=== PATIENT | male | born 1995 | race Caucasian/White ===

== ENCOUNTER 2024-08-27 12:12 | Inpatient (IN) | payer OTHER, MEDICAID, MEDICARE ==
[~2024-08-27] VITALS: Ht 175.3 cm; Wt 76.1 kg
[2024-08-27 12:52] LABS: HEMATOCRIT 46.6 % (42.0-52.0); HEMOGLOBIN 15.6 g/dl (13.5-17.5); MEAN CORPUSCULAR HEMOGLOBIN 28.8 pg (27.0-33.0); MEAN CORPUSCULAR HGB CONC 33.5 g/dl (32.0-36.5); MEAN CORPUSCULAR VOLUME 86.1 fl (80.0-96.0); PLATELET COUNT, AUTOMATED 291 10^3/uL (150-450); RED BLOOD COUNT 5.41 10^6/uL (4.30-6.10); WHITE BLOOD COUNT 13.4 10^3/uL (4.0-10.0)
[2024-08-27 12:58] LABS: KETONE, URINE AUTO RFX NEGATIVE (NEGATIVE); LEUKOCYTE ESTERASE UR AUTO RFX NEGATIVE (NEGATIVE); MUCUS, URINE RFX SMALL (NEGATIVE); NITRITE, URINE AUTO RFX NEGATIVE (NEGATIVE); RBC, URINE AUTO RFX 4 /HPF (0-3); SQUAM EPITHELIAL CELL UR AURFX 2 /HPF (0-6); WBC, URINE AUTO RFX 4 /HPF (0-3)
[2024-08-27] MEDS: cefTRIAXone SOD 2 GM in DEXTROSE 5% (D5W) ADV/MINI-BAG 50 ML IV ONE (13:10)
[2024-08-27 13:11] LABS: ETHYL ALCOHOL (ETHANOL) 0.004 % (0.000-0.010)
[2024-08-27 13:12] LABS: SALICYLATE LEVEL < 3.0 MG/DL (<30)
[2024-08-27 13:13] LABS: ALBUMIN 4.2 G/DL (3.2-5.2); ALKALINE PHOSPHATASE 137 U/L (40-129); ALT/SGPT 42 U/L (7.0-40); AST/SGOT 28 U/L (<34); BILIRUBIN,DIRECT < 0.1 MG/DL (<0.4); BILIRUBIN,TOTAL 0.3 MG/DL (0.3-1.2); BLOOD UREA NITROGEN 15 MG/DL (9-23); CALCIUM LEVEL 9.8 MG/DL (8.5-10.1); CARBON DIOXIDE LEVEL 25 MMOL/L (20-31); CHLORIDE LEVEL 107 MMOL/L (98-107); CREATININE FOR GFR 1.19 MG/DL (0.70-1.30); GLOMERULAR FILTRATION RATE > 60.0 (>60); GLUCOSE, FASTING 137 MG/DL (60-100); POTASSIUM SERUM 3.9 MMOL/L (3.5-5.1); SODIUM LEVEL 142 MMOL/L (136-145); TOTAL PROTEIN 7.9 G/DL (5.7-8.2)
[2024-08-27 13:15] LABS: THYROID STIMULATING HORMONE 5.131 uIU/ML (0.55-4.78)
[2024-08-27 13:22] LABS: AMPHETAMINES LEVEL URINE NEGATIVE (NEGATIVE); BARBITURATES URINE NEGATIVE (NEGATIVE); CANNABINOIDS URINE NEGATIVE (NEGATIVE); COCAINE METABOLITE URINE NEGATIVE (NEGATIVE); METHADONE URINE NEGATIVE (NEGATIVE); OPIATES URINE NEGATIVE (NEGATIVE); PHENCYCLIDINE URINE NEGATIVE (NEGATIVE)
[2024-08-27 13:27] LABS: BENZODIAZEPINES URINE POSITIVE (NEGATIVE)
[2024-08-27] MEDS: NS 0.9% IV ONE (13:35)
[2024-08-27] MEDS: [UNRECOGNIZED DRUG - OTHER] IV ONE (13:35)
[2024-08-27] MEDS: NS 500 ML IV ONE (13:46)
[2024-08-27] MEDS ORDERED: ZOLO100T PO (16:17)
[2024-08-27] MEDS ORDERED: CLON1TAB8 PO ×2 (16:17)
[2024-08-27] MEDS ORDERED: HOME MED LIST COMPLETE! XX SCH (16:20)
[2024-08-27] MEDS: HALOPERIDOL LACTATE 5MG/ML VIAL IV PRN (16:52)
[2024-08-27 17:32] LABS: CK-MB VALUE MASS < 1.0 NG/ML (<3.6)
[2024-08-27 17:42] LABS: CPK CREATINE PHOSPHOKINASE 392 U/L (46-171); MB/CK RELATIVE INDEX 0.25 (< OR =4)
[2024-08-27 17:44] LABS: PROCALCITONIN <0.04 ng/ml
[2024-08-27] MEDS: NS (Normal Saline) 0.9% 1,000 ML IV SCH (17:45)
[2024-08-27] MEDS: LORazepam 2 MG/ML 1ML VIAL IV PRN (22:04)
[2024-08-28] MEDS: diphenhydrAMINE 50MG/ML VIAL IV ONE (08:22)
[2024-08-28] MEDS: LORazepam 2 MG/ML 1ML VIAL IV ONE (08:23)
[2024-08-28] MEDS: HALOPERIDOL LACTATE 5MG/ML VIAL IV ONE (08:23)
[2024-08-28] MEDS: SERTRALINE HCL 50 MG TAB PO SCH (09:00)
[2024-08-28] MEDS: ENOXAPARIN 40MG/0.4ML SYRINGE (J1650 PER 10MG) SC SCH (09:00)
[2024-08-28 09:13] LABS: HEMATOCRIT 39.1 % (42.0-52.0); MEAN CORPUSCULAR HGB CONC 33.8 g/dl (32.0-36.5)
[2024-08-28 09:20] LABS: MEAN CORPUSCULAR HEMOGLOBIN 28.9 pg (27.0-33.0); MEAN CORPUSCULAR VOLUME 85.7 fl (80.0-96.0); PLATELET COUNT, AUTOMATED 225 10^3/uL (150-450); RED BLOOD COUNT 4.56 10^6/uL (4.30-6.10); WHITE BLOOD COUNT 8.5 10^3/uL (4.0-10.0)
[2024-08-28 09:26] LABS: INR 1.11; PROTHROMBIN TIME 14.6 SECONDS (12.5-14.5)
[2024-08-28 09:28] LABS: HEMOGLOBIN 13.2 g/dl (13.5-17.5)
[2024-08-28 09:41] LABS: CK-MB VALUE MASS 13.9 NG/ML (<3.6)
[2024-08-28 09:42] LABS: ALBUMIN 3.4 G/DL (3.2-5.2); ALKALINE PHOSPHATASE 111 U/L (40-129); ALT/SGPT 41 U/L (7.0-40); AST/SGOT 73 U/L (<34); BILIRUBIN,TOTAL 0.5 MG/DL (0.3-1.2); BLOOD UREA NITROGEN 9 MG/DL (9-23); CALCIUM LEVEL 8.6 MG/DL (8.5-10.1); CARBON DIOXIDE LEVEL 24 MMOL/L (20-31); CHLORIDE LEVEL 110 MMOL/L (98-107); CREATININE FOR GFR 0.85 MG/DL (0.70-1.30); GLOMERULAR FILTRATION RATE > 60.0 (>60); GLUCOSE, FASTING 120 MG/DL (60-100); POTASSIUM SERUM 3.6 MMOL/L (3.5-5.1); SODIUM LEVEL 142 MMOL/L (136-145); TOTAL PROTEIN 6.7 G/DL (5.7-8.2)
[2024-08-28 09:54] LABS: MB/CK RELATIVE INDEX 0.4 (< OR =4)
[2024-08-28] MEDS: HALOPERIDOL LACTATE 5MG/ML VIAL IV SCH (12:00)
[2024-08-28] MEDS: cefTRIAXone SOD 1 GM in DEXTROSE 5% (D5W) ADV/MINI-BAG 50 ML IV SCH (13:10)
[2024-08-28 15:23] VITALS: BP 130/74; TEMP 97.6; O2SAT 99
[2024-08-28] MEDS: NS (Normal Saline) 0.9% 1,000 ML IV SCH (16:06)
[2024-08-28 19:43] VITALS: BP 112/61; TEMP 97.2; O2SAT 100
[2024-08-28] MEDS: clonazePAM 1 MG TAB PO SCH (21:00)
[2024-08-29] VITALS (7 sets, daily range): BP systolic 122–133; BP diastolic 76–81; TEMP 97.3–99.5; O2SAT 95–99
[2024-08-29 06:41] LABS: HEMATOCRIT 38.6 % (42.0-52.0); HEMOGLOBIN 13.1 g/dl (13.5-17.5); MEAN CORPUSCULAR HGB CONC 33.9 g/dl (32.0-36.5); MEAN CORPUSCULAR VOLUME 85.6 fl (80.0-96.0); PLATELET COUNT, AUTOMATED 224 10^3/uL (150-450); RED BLOOD COUNT 4.51 10^6/uL (4.30-6.10); WHITE BLOOD COUNT 8.9 10^3/uL (4.0-10.0)
[2024-08-29 07:48] LABS: ALBUMIN 3.1 G/DL (3.2-5.2); ALKALINE PHOSPHATASE 104 U/L (40-129); ALT/SGPT 47 U/L (7.0-40); AST/SGOT 110 U/L (<34); BILIRUBIN,TOTAL 0.7 MG/DL (0.3-1.2); BLOOD UREA NITROGEN 5 MG/DL (9-23); CALCIUM LEVEL 8.5 MG/DL (8.5-10.1); CARBON DIOXIDE LEVEL 26 MMOL/L (20-31); CHLORIDE LEVEL 109 MMOL/L (98-107); CPK CREATINE PHOSPHOKINASE 4749 U/L (46-171); CREATININE FOR GFR 0.92 MG/DL (0.70-1.30); GLOMERULAR FILTRATION RATE > 60.0 (>60); GLUCOSE, FASTING 93 MG/DL (60-100); POTASSIUM SERUM 4.1 MMOL/L (3.5-5.1); SODIUM LEVEL 142 MMOL/L (136-145); TOTAL PROTEIN 6.1 G/DL (5.7-8.2)
[2024-08-30 04:00] VITALS: BP 123/83; TEMP 97.9; O2SAT 99
[2024-08-30 06:38] LABS: HEMOGLOBIN 13.1 g/dl (13.5-17.5); MEAN CORPUSCULAR HEMOGLOBIN 28.6 pg (27.0-33.0); MEAN CORPUSCULAR HGB CONC 33.6 g/dl (32.0-36.5); MEAN CORPUSCULAR VOLUME 85.2 fl (80.0-96.0); PLATELET COUNT, AUTOMATED 214 10^3/uL (150-450); RED BLOOD COUNT 4.58 10^6/uL (4.30-6.10); WHITE BLOOD COUNT 6.3 10^3/uL (4.0-10.0)
[2024-08-30 07:04] LABS: ALBUMIN 2.8 G/DL (3.2-5.2); ALKALINE PHOSPHATASE 105 U/L (40-129); ALT/SGPT 42 U/L (7.0-40); AST/SGOT 78 U/L (<34); BILIRUBIN,TOTAL 0.5 MG/DL (0.3-1.2); BLOOD UREA NITROGEN 7 MG/DL (9-23); CALCIUM LEVEL 8.6 MG/DL (8.5-10.1); CARBON DIOXIDE LEVEL 27 MMOL/L (20-31); CHLORIDE LEVEL 110 MMOL/L (98-107); CREATININE FOR GFR 0.83 MG/DL (0.70-1.30); GLOMERULAR FILTRATION RATE > 60.0 (>60); GLUCOSE, FASTING 98 MG/DL (60-100); POTASSIUM SERUM 3.7 MMOL/L (3.5-5.1); SODIUM LEVEL 143 MMOL/L (136-145); TOTAL PROTEIN 6.2 G/DL (5.7-8.2)
[2024-08-30 07:24] LABS: CPK CREATINE PHOSPHOKINASE 2506 U/L (46-171)
[2024-08-30 12:00] VITALS: BP 122/84; TEMP 97.6; O2SAT 98
[2024-08-30] MEDS ORDERED: HALOPERIDOL LACTATE 5MG/ML VIAL IV SCH (21:00)
[2024-08-31 04:00] VITALS: BP 139/87; TEMP 96.6; O2SAT 99
[2024-08-31 06:49] LABS: HEMOGLOBIN 13.7 g/dl (13.5-17.5); MEAN CORPUSCULAR HGB CONC 34.3 g/dl (32.0-36.5); MEAN CORPUSCULAR VOLUME 84.7 fl (80.0-96.0); PLATELET COUNT, AUTOMATED 229 10^3/uL (150-450); RED BLOOD COUNT 4.72 10^6/uL (4.30-6.10); WHITE BLOOD COUNT 7.5 10^3/uL (4.0-10.0)
[2024-08-31] MEDS: METOPROLOL TART 12.5 MG PER 1/2 TAB PO SCH (07:07)
[2024-08-31 07:18] LABS: ALKALINE PHOSPHATASE 106 U/L (40-129); ALT/SGPT 42 U/L (7.0-40); AST/SGOT 60 U/L (<34); BILIRUBIN,TOTAL 0.5 MG/DL (0.3-1.2); BLOOD UREA NITROGEN 5 MG/DL (9-23); CALCIUM LEVEL 8.7 MG/DL (8.5-10.1); CARBON DIOXIDE LEVEL 26 MMOL/L (20-31); CHLORIDE LEVEL 108 MMOL/L (98-107); CREATININE FOR GFR 0.79 MG/DL (0.70-1.30); GLOMERULAR FILTRATION RATE > 60.0 (>60); GLUCOSE, FASTING 97 MG/DL (60-100); POTASSIUM SERUM 3.7 MMOL/L (3.5-5.1); SODIUM LEVEL 142 MMOL/L (136-145); TOTAL PROTEIN 6.2 G/DL (5.7-8.2)
[2024-08-31 07:33] LABS: CPK CREATINE PHOSPHOKINASE 1408 U/L (46-171)
[2024-08-31 12:00] VITALS: BP 126/84; TEMP 97.5; O2SAT 98
[2024-08-31] MEDS ORDERED: HALOPERIDOL LACTATE 5MG/ML VIAL IM PRN (16:15)
[2024-08-31] MEDS ORDERED: LORazepam 1 MG TAB PO PRN (16:15)
[2024-08-31 20:24] VITALS: BP 137/87; TEMP 97.9; O2SAT 94
[2024-09-01 03:48] VITALS: BP 131/91; TEMP 97.5; O2SAT 99
[2024-09-01 06:30] LABS: HEMATOCRIT 41.9 % (42.0-52.0); HEMOGLOBIN 14.1 g/dl (13.5-17.5); MEAN CORPUSCULAR HEMOGLOBIN 28.7 pg (27.0-33.0); MEAN CORPUSCULAR HGB CONC 33.7 g/dl (32.0-36.5); MEAN CORPUSCULAR VOLUME 85.2 fl (80.0-96.0); PLATELET COUNT, AUTOMATED 241 10^3/uL (150-450); RED BLOOD COUNT 4.92 10^6/uL (4.30-6.10); WHITE BLOOD COUNT 6.8 10^3/uL (4.0-10.0)
[2024-09-01 06:59] LABS: ALKALINE PHOSPHATASE 108 U/L (40-129); ALT/SGPT 40 U/L (7.0-40); AST/SGOT 48 U/L (<34); BILIRUBIN,TOTAL 0.4 MG/DL (0.3-1.2); BLOOD UREA NITROGEN 10 MG/DL (9-23); CALCIUM LEVEL 9.2 MG/DL (8.5-10.1); CARBON DIOXIDE LEVEL 28 MMOL/L (20-31); CHLORIDE LEVEL 105 MMOL/L (98-107); CREATININE FOR GFR 0.89 MG/DL (0.70-1.30); GLOMERULAR FILTRATION RATE > 60.0 (>60); GLUCOSE, FASTING 99 MG/DL (60-100); SODIUM LEVEL 143 MMOL/L (136-145); TOTAL PROTEIN 6.5 G/DL (5.7-8.2)
[2024-09-01 09:26] VITALS: BP 124/83
[2024-09-01 12:00] VITALS: BP 124/83; TEMP 97.2; O2SAT 97
[2024-09-01 20:00] VITALS: BP 125/86; TEMP 97.7; O2SAT 97
[2024-09-02 04:10] VITALS: BP 122/83; TEMP 97.3; O2SAT 97
[2024-09-02 06:33] LABS: HEMATOCRIT 42.6 % (42.0-52.0); HEMOGLOBIN 14.4 g/dl (13.5-17.5); MEAN CORPUSCULAR HEMOGLOBIN 28.6 pg (27.0-33.0); MEAN CORPUSCULAR HGB CONC 33.8 g/dl (32.0-36.5); MEAN CORPUSCULAR VOLUME 84.5 fl (80.0-96.0); PLATELET COUNT, AUTOMATED 251 10^3/uL (150-450); RED BLOOD COUNT 5.04 10^6/uL (4.30-6.10); WHITE BLOOD COUNT 7.4 10^3/uL (4.0-10.0)
[2024-09-02 06:58] LABS: ALBUMIN 3.1 G/DL (3.2-5.2); ALKALINE PHOSPHATASE 111 U/L (40-129); ALT/SGPT 40 U/L (7.0-40); AST/SGOT 44 U/L (<34); BILIRUBIN,TOTAL 0.4 MG/DL (0.3-1.2); BLOOD UREA NITROGEN 12 MG/DL (9-23); CALCIUM LEVEL 9.1 MG/DL (8.5-10.1); CARBON DIOXIDE LEVEL 32 MMOL/L (20-31); CHLORIDE LEVEL 105 MMOL/L (98-107); CPK CREATINE PHOSPHOKINASE 1000 U/L (46-171); CREATININE FOR GFR 0.92 MG/DL (0.70-1.30); GLOMERULAR FILTRATION RATE > 60.0 (>60); GLUCOSE, FASTING 105 MG/DL (60-100); POTASSIUM SERUM 4.2 MMOL/L (3.5-5.1); SODIUM LEVEL 143 MMOL/L (136-145); TOTAL PROTEIN 6.7 G/DL (5.7-8.2)
[2024-09-02 12:00] VITALS: BP 126/86; TEMP 97.5; O2SAT 95
[2024-09-02 20:46] VITALS: BP 129/93; TEMP 97.9; O2SAT 97
[2024-09-03 04:16] VITALS: BP 126/90; TEMP 97.6; O2SAT 97
[2024-09-03 12:00] VITALS: BP 124/80; TEMP 97.5; O2SAT 98
[2024-09-03 19:42] VITALS: BP 137/89; TEMP 98.1; O2SAT 95
[2024-09-04 04:06] VITALS: BP 123/82; TEMP 97.2; O2SAT 98
[2024-09-04 06:43] LABS: ALBUMIN 3.2 G/DL (3.2-5.2); ALKALINE PHOSPHATASE 107 U/L (40-129); ALT/SGPT 36 U/L (7.0-40); AST/SGOT 29 U/L (<34); BILIRUBIN,TOTAL 0.6 MG/DL (0.3-1.2); BLOOD UREA NITROGEN 19 MG/DL (9-23); CALCIUM LEVEL 9.5 MG/DL (8.5-10.1); CARBON DIOXIDE LEVEL 30 MMOL/L (20-31); CHLORIDE LEVEL 106 MMOL/L (98-107); CREATININE FOR GFR 0.97 MG/DL (0.70-1.30); GLOMERULAR FILTRATION RATE > 60.0 (>60); GLUCOSE, FASTING 106 MG/DL (60-100); POTASSIUM SERUM 4.1 MMOL/L (3.5-5.1); SODIUM LEVEL 142 MMOL/L (136-145); TOTAL PROTEIN 6.9 G/DL (5.7-8.2)
[2024-09-04 12:18] VITALS: BP 123/83; TEMP 97.7; O2SAT 94
[2024-09-05 04:56] VITALS: BP 120/82; TEMP 97.7; O2SAT 94
[2024-09-05 12:00] VITALS: BP 118/81; TEMP 97.9; O2SAT 90
[2024-09-06 06:00] VITALS: BP 130/85; TEMP 97.8; O2SAT 90
[2024-09-07 04:39] VITALS: BP 142/87; TEMP 98.1; O2SAT 91
[2024-09-07] MEDS: NS (Normal Saline) 0.9% 1,000 ML IV ONE (05:24)
[2024-09-07 06:01] LABS: BASO % 0.4 % (0.0-1.0); EOS % 0.4 % (0.0-3.0); HEMATOCRIT 42.3 % (42.0-52.0); HEMOGLOBIN 14.1 g/dl (13.5-17.5); LYMPH # 1.9 10^3/uL (1.5-5.0); LYMPH % 20.6 % (24.0-44.0); MEAN CORPUSCULAR HEMOGLOBIN 28.5 pg (27.0-33.0); MEAN CORPUSCULAR HGB CONC 33.3 g/dl (32.0-36.5); MEAN CORPUSCULAR VOLUME 85.6 fl (80.0-96.0); MONO % 10.1 % (2.0-8.0); NEUTROPHILS # 6.4 10^3/uL (1.5-8.5); NEUTROPHILS % 67.9 % (36.0-66.0); PLATELET COUNT, AUTOMATED 276 10^3/uL (150-450); RED BLOOD COUNT 4.94 10^6/uL (4.30-6.10); WHITE BLOOD COUNT 9.4 10^3/uL (4.0-10.0)
[2024-09-07 06:35] LABS: ALBUMIN 3.2 G/DL (3.2-5.2); ALKALINE PHOSPHATASE 118 U/L (40-129); ALT/SGPT 54 U/L (7.0-40); AST/SGOT 61 U/L (<34); BILIRUBIN,TOTAL 0.5 MG/DL (0.3-1.2); BLOOD UREA NITROGEN 19 MG/DL (9-23); CALCIUM LEVEL 9.5 MG/DL (8.5-10.1); CARBON DIOXIDE LEVEL 28 MMOL/L (20-31); CHLORIDE LEVEL 105 MMOL/L (98-107); CPK CREATINE PHOSPHOKINASE 1870 U/L (46-171); GLOMERULAR FILTRATION RATE > 60.0 (>60); GLUCOSE, FASTING 117 MG/DL (60-100); MAGNESIUM LEVEL 2.2 MG/DL (1.8-2.4); POTASSIUM SERUM 4.1 MMOL/L (3.5-5.1); SODIUM LEVEL 141 MMOL/L (136-145); TOTAL PROTEIN 7.6 G/DL (5.7-8.2)
[2024-09-08 04:15] VITALS: BP 119/78; TEMP 97.4; O2SAT 91
[2024-09-08 10:48] LABS: ALBUMIN 3.2 G/DL (3.2-5.2); ALKALINE PHOSPHATASE 119 U/L (40-129); ALT/SGPT 55 U/L (7.0-40); AST/SGOT 45 U/L (<34); BILIRUBIN,TOTAL 0.6 MG/DL (0.3-1.2); BLOOD UREA NITROGEN 20 MG/DL (9-23); CALCIUM LEVEL 9.3 MG/DL (8.5-10.1); CARBON DIOXIDE LEVEL 27 MMOL/L (20-31); CHLORIDE LEVEL 106 MMOL/L (98-107); CREATININE FOR GFR 0.94 MG/DL (0.70-1.30); GLOMERULAR FILTRATION RATE > 60.0 (>60); GLUCOSE, FASTING 103 MG/DL (60-100); POTASSIUM SERUM 4.4 MMOL/L (3.5-5.1); SODIUM LEVEL 142 MMOL/L (136-145); TOTAL PROTEIN 7.3 G/DL (5.7-8.2)
[2024-09-08 10:50] LABS: CPK CREATINE PHOSPHOKINASE 724 U/L (46-171)
[2024-09-09 04:14] VITALS: BP 118/79; TEMP 98.1; O2SAT 99
[2024-09-10 04:40] VITALS: BP 112/76; TEMP 97; O2SAT 96
[2024-09-11 04:10] VITALS: BP 124/87; TEMP 97.8; O2SAT 97
[2024-09-12 04:28] VITALS: BP 130/89; TEMP 97.9; O2SAT 96
[2024-09-12] MEDS: NYSTATIN OINTMENT 15 GM TOP SCH (15:18)
[2024-09-13 04:00] VITALS: BP 122/86; TEMP 97.5; O2SAT 97
[2024-09-14 04:00] VITALS: BP 119/77; TEMP 97.7; O2SAT 97
[2024-09-15 04:13] VITALS: BP 120/82; TEMP 97.9; O2SAT 96
[2024-09-16 04:34] VITALS: BP 105/71; TEMP 98.1; O2SAT 93
[2024-09-17 04:44] VITALS: BP 102/66; TEMP 96.6; O2SAT 97
[2024-09-18 04:48] VITALS: BP 115/74; TEMP 98.2; O2SAT 97
[2024-09-20 04:00] VITALS: BP 113/73; TEMP 97.5; O2SAT 97
[2024-09-21 04:00] VITALS: BP 110/73; TEMP 97.6; O2SAT 97
[2024-09-22 04:00] VITALS: BP 109/72; TEMP 97.7; O2SAT 97
[2024-09-23 04:37] VITALS: BP 109/72; TEMP 98.4; O2SAT 97
[2024-09-24 04:16] VITALS: BP 117/78; TEMP 97.7; O2SAT 99
[2024-09-25 04:47] VITALS: BP 98/66; TEMP 97.3; O2SAT 98
[2024-09-25 21:00] VITALS: BP 109/70; TEMP 98.7
[2024-09-26 06:00] VITALS: BP 110/71; TEMP 98.1; O2SAT 96
[2024-09-27 04:00] VITALS: BP 114/70; TEMP 97.5; O2SAT 96
[2024-09-27 08:14] VITALS: BP 113/69
[2024-09-28 04:00] VITALS: BP 111/72; TEMP 97.5; O2SAT 97
[2024-09-28 09:55] VITALS: BP 111/71
[2024-09-29 04:00] VITALS: BP 109/72; TEMP 97; O2SAT 96
[2024-09-30 04:52] VITALS: BP 105/71; TEMP 98.8; O2SAT 96
[2024-10-01 04:00] VITALS: BP 104/67; TEMP 97.3
[2024-10-02 05:23] VITALS: BP 124/80; TEMP 97.2; O2SAT 96
[2024-10-02] MEDS: RIVAROXABAN 10MG TAB PO SCH (09:03)
[2024-10-02 20:00] VITALS: BP 110/79; TEMP 97; O2SAT 97
[2024-10-06 04:00] VITALS: BP 114/63; TEMP 97.3; O2SAT 98
[2024-10-07 04:48] VITALS: BP 116/74; TEMP 97.5; O2SAT 90
[2024-10-08 04:29] VITALS: BP 88/53; TEMP 97.9; O2SAT 97
[2024-10-08 04:38] VITALS: BP 110/58
[2024-10-08 10:07] LABS: THYROID STIMULATING HORMONE 1.167 uIU/ML (0.55-4.78)
[2024-10-09 21:36] VITALS: BP 96/64
[2024-10-10 05:16] VITALS: BP 112/76; TEMP 97.5; O2SAT 99
[2024-10-10 09:39] VITALS: BP 142/75
[2024-10-11 06:46] VITALS: BP 102/76; TEMP 98.1; O2SAT 98
[2024-10-11 09:23] VITALS: BP 108/72
[2024-10-12 05:33] VITALS: BP 112/52; TEMP 97.5; O2SAT 97
[2024-10-12 08:27] VITALS: BP 107/67
[2024-10-13 04:08] VITALS: BP 114/73; TEMP 97.9; O2SAT 94
[2024-10-14 04:49] VITALS: BP 114/72; TEMP 97.4; O2SAT 95
[2024-10-15 04:37] VITALS: BP 109/73; TEMP 97.4; O2SAT 96
[2024-10-16 05:12] VITALS: BP 94/59; TEMP 97.7; O2SAT 95
[2024-10-17 04:00] VITALS: BP 108/72; TEMP 97.7; O2SAT 95
[2024-10-17 04:47] VITALS: BP 108/72
[2024-10-17 09:43] VITALS: BP 109/71
[2024-10-18 05:18] VITALS: BP 105/72; TEMP 97.7; O2SAT 97
[2024-10-19 04:51] VITALS: BP 95/61; TEMP 97.5; O2SAT 95
[2024-10-20 05:40] VITALS: BP 98/63; TEMP 97.5; O2SAT 99
[2024-10-21 04:20] VITALS: BP 105/70; TEMP 97.7; O2SAT 99
[2024-10-22 05:39] VITALS: BP 110/72; TEMP 97.5; O2SAT 99
[2024-10-23 04:27] VITALS: BP 99/69; TEMP 97.3; O2SAT 97
[2024-10-24 04:23] VITALS: BP 92/67; TEMP 97.7; O2SAT 96
[2024-10-24 08:13] VITALS: BP 100/62
[2024-10-25 05:10] VITALS: BP 103/70; TEMP 97.7; O2SAT 99
[2024-10-26 04:59] VITALS: BP 106/72; TEMP 97.6; O2SAT 96
[2024-10-27 05:00] VITALS: BP 105/70; TEMP 97.9; O2SAT 96
[2024-10-28 04:47] VITALS: BP 105/71; TEMP 97.2; O2SAT 96
[2024-10-29 04:00] VITALS: BP 96/62; TEMP 97.7; O2SAT 97
[2024-10-29 08:40] VITALS: BP 94/61
[2024-10-30 04:55] VITALS: BP 101/60; TEMP 97.3; O2SAT 98
[2024-10-31 04:16] VITALS: BP 100/74; TEMP 97.2; O2SAT 96
[2024-11-01 05:16] VITALS: BP 109/76; TEMP 97.5; O2SAT 99
[2024-11-02 05:29] VITALS: BP 115/75; TEMP 97.7; O2SAT 95
[2024-11-03 05:51] VITALS: BP 112/73; TEMP 97.5; O2SAT 99
[2024-11-04 05:27] VITALS: BP 109/73; TEMP 97.6; O2SAT 98
[2024-11-05 04:47] VITALS: BP 109/73; TEMP 97.5; O2SAT 96
[2024-11-06 04:00] VITALS: BP 102/69; TEMP 97.3; O2SAT 99
[2024-11-07 05:25] VITALS: BP 101/68; TEMP 97.6; O2SAT 99
[2024-11-08 05:37] VITALS: BP 100/70; TEMP 97.3; O2SAT 98
[2024-11-09 05:38] VITALS: BP 100/68; TEMP 97.5; O2SAT 99
[2024-11-10 04:00] VITALS: BP 101/67; TEMP 97.3; O2SAT 90
[2024-11-11 04:33] VITALS: BP 105/70; TEMP 97.7; O2SAT 96
[2024-11-12 04:41] VITALS: BP 101/68; TEMP 97.9; O2SAT 94
[2024-11-13 04:35] VITALS: BP 102/69; TEMP 97.5; O2SAT 96
[2024-11-14 04:00] VITALS: BP 107/72; TEMP 97.3; O2SAT 99
[2024-11-15 05:49] VITALS: BP 106/73; TEMP 97.7; O2SAT 96
[2024-11-16 05:45] VITALS: BP 105/71; TEMP 97.7; O2SAT 97
[2024-11-17 06:08] VITALS: BP 101/68; TEMP 97.7; O2SAT 98
[2024-11-18 05:37] VITALS: BP 104/70; TEMP 97.5; O2SAT 97
[2024-11-19 04:00] VITALS: BP 103/69; TEMP 97.3; O2SAT 99
[2024-11-20 04:00] VITALS: BP 101/69; TEMP 97.5; O2SAT 98
[2024-11-21 04:00] VITALS: BP 99/68; TEMP 97.3; O2SAT 99
[2024-11-22 05:59] VITALS: BP 99/67; TEMP 97.2; O2SAT 98
[2024-11-23 05:33] VITALS: BP 98/67; TEMP 97.2; O2SAT 96
[2024-11-24 04:22] VITALS: BP 100/63; TEMP 97.7; O2SAT 98
[2024-11-25 04:34] VITALS: BP 117/68; TEMP 97.5; O2SAT 98
[2024-11-25] MEDS ORDERED: NYSTATIN 100,000 UNITS/GM TOPICAL PWD 15GM TOP PRN (14:25)
[2024-11-26 05:10] VITALS: BP 114/83; TEMP 98.4; O2SAT 93
[2024-11-27 05:13] VITALS: BP 117/67; TEMP 97.5; O2SAT 96
[2024-11-28 06:07] VITALS: BP 110/70; TEMP 97.7; O2SAT 98
[2024-11-29 06:03] VITALS: BP 112/69; TEMP 97.6; O2SAT 97
[2024-11-30 05:55] VITALS: BP 104/68; TEMP 97.3; O2SAT 98
[2024-12-01 05:46] VITALS: BP 110/78; TEMP 97.9; O2SAT 96
[2024-12-02 06:42] VITALS: BP 105/76; TEMP 98; O2SAT 97
[2024-12-03 04:00] VITALS: BP 117/64; TEMP 97.3; O2SAT 98
[2024-12-04 04:00] VITALS: BP 115/82; TEMP 97.3; O2SAT 98
[2024-12-05 04:00] VITALS: BP 114/79; TEMP 97.3; O2SAT 99
[2024-12-06 05:47] VITALS: BP 93/60; TEMP 97.7; O2SAT 93
[2024-12-07 06:00] VITALS: BP 100/66; TEMP 97.5; O2SAT 95
[2024-12-08 04:21] VITALS: BP 99/66; TEMP 97.3; O2SAT 96
[2024-12-09 06:22] VITALS: TEMP 97.9; O2SAT 97
[2024-12-09 06:34] VITALS: BP 130/82
[2024-12-10 04:00] VITALS: BP 101/66; TEMP 97.5; O2SAT 98
[2024-12-11 04:54] VITALS: BP 117/75; TEMP 97.3
[2024-12-12 06:25] VITALS: BP 102/64; TEMP 97.7; O2SAT 96
[2024-12-13 05:41] VITALS: BP 100/65; TEMP 97.3; O2SAT 95
[2024-12-14 05:45] VITALS: BP 105/55; TEMP 97.1; O2SAT 96
[2024-12-15 04:00] VITALS: BP 94/63; TEMP 97.2; O2SAT 97
[2024-12-15 05:07] VITALS: BP 94/63; TEMP 97.2; O2SAT 97
[2024-12-15 05:28] VITALS: BP 102/80
[2024-12-16 04:43] VITALS: BP 95/63; TEMP 97.2; O2SAT 98
[2024-12-17 05:16] VITALS: BP 95/63; TEMP 97.5; O2SAT 96
[2024-12-18 06:06] VITALS: BP 100/65; TEMP 97.3; O2SAT 97
[2024-12-19 04:29] VITALS: BP 102/69; TEMP 97.5; O2SAT 96
[2024-12-20 05:38] VITALS: BP 102/68; TEMP 97.3; O2SAT 96
[2024-12-21 06:57] VITALS: BP 102/68; TEMP 97.5; O2SAT 98
[2024-12-22 05:33] VITALS: BP 103/66; TEMP 97.3; O2SAT 96
[2024-12-23 04:47] VITALS: BP 108/71; TEMP 97.5; O2SAT 98
[2024-12-24 04:00] VITALS: BP 107/71; TEMP 97.5; O2SAT 98
[2024-12-25 04:00] VITALS: BP 103/71; TEMP 97.5; O2SAT 98
[2024-12-26 04:29] VITALS: BP 99/68; TEMP 97.5; O2SAT 98
[2024-12-27 04:00] VITALS: BP 102/71; TEMP 97.5; O2SAT 97
[2024-12-28 05:35] VITALS: BP 107/73; TEMP 97.5; O2SAT 98
[2024-12-29 05:28] VITALS: BP 98/65; TEMP 97.5; O2SAT 97
[2024-12-29 18:50] LABS: BASO % 0.6 % (0.0-1.0); EOS # 0.1 10^3/uL (0.0-0.5); EOS % 1.7 % (0.0-3.0); HEMATOCRIT 42.1 % (42.0-52.0); LYMPH # 1.9 10^3/uL (1.5-5.0); LYMPH % 28.6 % (24.0-44.0); MEAN CORPUSCULAR HEMOGLOBIN 27.8 pg (27.0-33.0); MEAN CORPUSCULAR HGB CONC 33.3 g/dl (32.0-36.5); MEAN CORPUSCULAR VOLUME 83.5 fl (80.0-96.0); MONO # 0.4 10^3/uL (0.0-0.8); MONO % 6.3 % (2.0-8.0); NEUTROPHILS % 62.5 % (36.0-66.0); PLATELET COUNT, AUTOMATED 263 10^3/uL (150-450); RED BLOOD COUNT 5.04 10^6/uL (4.30-6.10); WHITE BLOOD COUNT 6.5 10^3/uL (4.0-10.0)
[2024-12-29 19:18] LABS: BLOOD UREA NITROGEN 14 MG/DL (9-23); CALCIUM LEVEL 9.2 MG/DL (8.5-10.1); CARBON DIOXIDE LEVEL 29 MMOL/L (20-31); CHLORIDE LEVEL 105 MMOL/L (98-107); CREATININE FOR GFR 0.91 MG/DL (0.70-1.30); GLOMERULAR FILTRATION RATE > 60.0 (>60); GLUCOSE, FASTING 98 MG/DL (60-100); SODIUM LEVEL 143 MMOL/L (136-145)
[2024-12-30 05:07] VITALS: BP 104/60; TEMP 97.3; O2SAT 98
[2024-12-31 04:50] VITALS: BP 99/60; TEMP 97.5; O2SAT 96
[2025-01-01 04:22] VITALS: BP 100/62; TEMP 97.5; O2SAT 96
[2025-01-02 10:27] VITALS: BP 103/66; TEMP 97.7; O2SAT 95
[2025-01-03 06:07] VITALS: BP 100/64; TEMP 97.5; O2SAT 97
[2025-01-04 05:30] VITALS: BP 98/64; TEMP 97.5; O2SAT 99
[2025-01-05 04:23] VITALS: BP 93/64; TEMP 97.4; O2SAT 97
[2025-01-06 05:08] VITALS: BP 94/65; TEMP 97.5; O2SAT 95
[2025-01-07 04:44] VITALS: BP 101/66; TEMP 97.5; O2SAT 96
[2025-01-08 05:10] VITALS: BP 99/65; TEMP 97.3; O2SAT 96
[2025-01-09 04:00] VITALS: BP 109/64; TEMP 97.2; O2SAT 97
[2025-01-10 05:52] VITALS: BP 108/70; TEMP 97.2; O2SAT 99
[2025-01-11 06:03] VITALS: BP 88/61; TEMP 97.3; O2SAT 98
[2025-01-12 05:24] VITALS: BP 104/65; TEMP 97.2; O2SAT 96
[2025-01-13 04:00] VITALS: BP 97/68; TEMP 97.3; O2SAT 97
[2025-01-14 04:40] VITALS: BP 95/65; TEMP 97.2; O2SAT 97
[2025-01-15 05:06] VITALS: BP 92/63; TEMP 97.3; O2SAT 93
[2025-01-15 16:00] VITALS: BP 119/73; TEMP 97.9; O2SAT 96
[2025-01-16 04:51] VITALS: BP 100/56; TEMP 97.3; O2SAT 96
[2025-01-16] MEDS: ACETAMINOPHEN 325 MG TAB PO PRN (09:00)
[2025-01-17 05:43] VITALS: BP 101/58; TEMP 97.3; O2SAT 99
[2025-01-18 05:32] VITALS: BP 103/67; TEMP 97.5; O2SAT 97
[2025-01-19 04:00] VITALS: BP 103/68; TEMP 97.3; O2SAT 99
[2025-01-20 06:20] VITALS: BP 96/64; TEMP 97.5; O2SAT 98
[2025-01-21 04:00] VITALS: BP 95/65; TEMP 97.5; O2SAT 98
[2025-01-22 04:00] VITALS: BP 96/65; TEMP 97.3; O2SAT 96
[2025-01-23 05:34] VITALS: BP 92/62; TEMP 97.2; O2SAT 96
[2025-01-24 05:48] VITALS: BP 109/66; TEMP 97.5; O2SAT 99
[2025-01-24 08:00] VITALS: BP 108/64; TEMP 97.3; O2SAT 96
[2025-01-25 05:45] VITALS: BP 102/68; TEMP 97.3; O2SAT 98
[2025-01-25] MEDS: SERTRALINE 100 MG TAB PO SCH (08:59)
[2025-01-25] MEDS: SERTRALINE HCL 50 MG TAB PO SCH (08:59)
[2025-01-26 06:00] VITALS: BP 100/67; TEMP 97.5; O2SAT 97
[2025-01-27 04:27] VITALS: BP 91/57; TEMP 97.5; O2SAT 96
[2025-01-28 05:16] VITALS: BP 88/57; TEMP 97.5; O2SAT 97
[2025-01-28 11:55] VITALS: BP 96/63
[2025-01-30 06:30] VITALS: BP 96/63; TEMP 97.5; O2SAT 98
[2025-01-31 05:57] VITALS: BP 95/63; TEMP 97.3; O2SAT 98
[2025-02-01 06:19] VITALS: BP 94/61; TEMP 97; O2SAT 98
[2025-02-03 04:00] VITALS: BP 104/62; TEMP 97.2; O2SAT 98
[2025-02-04 04:45] VITALS: BP 102/70; TEMP 97.5; O2SAT 98
[2025-02-05 04:45] VITALS: BP 94/60; TEMP 97.7; O2SAT 96
[2025-02-06 04:42] VITALS: BP 109/74; TEMP 97.3; O2SAT 96
[2025-02-06] MEDS: DOCUSATE SODIUM 100MG CAPSULE PO SCH (08:21)
[2025-02-07 06:15] VITALS: BP 96/64; TEMP 97.3; O2SAT 96
[2025-02-08 05:52] VITALS: BP 97/65; TEMP 97.5; O2SAT 97
[2025-02-09 04:00] VITALS: BP 91/62; TEMP 97.2; O2SAT 96
[2025-02-10 04:50] VITALS: BP 112/70; TEMP 97.3; O2SAT 97
[2025-02-11 05:27] VITALS: BP 109/70; TEMP 97.3; O2SAT 96
[2025-02-13 05:17] VITALS: BP 107/70; TEMP 97.5; O2SAT 96
[2025-02-14 06:01] VITALS: BP 105/70; TEMP 97.5; O2SAT 96
[2025-02-15 06:00] VITALS: BP 98/66; TEMP 97.3; O2SAT 99
[2025-02-16 05:57] VITALS: BP 96/64; TEMP 97.3; O2SAT 98
[2025-02-18 06:08] VITALS: BP 97/65; TEMP 97.3; O2SAT 96
[2025-02-19 05:51] VITALS: BP 94/61; TEMP 97.5; O2SAT 97
[2025-02-20 05:34] VITALS: BP 119/96; TEMP 97.5; O2SAT 96
[2025-02-21 06:50] VITALS: BP 109/61; TEMP 97.3; O2SAT 97
[2025-02-22 06:16] VITALS: BP 100/70; TEMP 97.6; O2SAT 96
[2025-02-24 05:02] VITALS: BP 100/65; TEMP 97.2; O2SAT 96
[2025-02-24] MEDS ORDERED: HALO5TAB33 PO (09:49)
[2025-02-24] MEDS ORDERED: XARE10TA PO (09:49)
[2025-02-24] MEDS ORDERED: COLA100C5 PO (09:49)
[2025-02-24] MEDS ORDERED: CLON1TAB8 PO (09:49)
== END 2025-02-24 11:20 | disposition home health service (06) | DRG 884 ==
LOC: EDBD 12:12 → M ED 12:12 → M ED INP 08-28 07:55 → M PCU 08-28 15:18 → M MS5PR 08-29 16:42
PROVIDERS: ADMIT Internal Medicine; ATTEND Internal Medicine
DX: R41.89 Other symptoms and signs involving cognitive functions and awareness (principal); R65.10 Systemic inflammatory response syndrome (SIRS) of non-infectious origin without acute organ dysfunction; M62.82 Rhabdomyolysis; F06.71 Mild neurocognitive disorder due to known physiological condition with behavioral disturbance; S06.9XAS Unspecified intracranial injury with loss of consciousness status unknown, sequela; G43.909 Migraine, unspecified, not intractable, without status migrainosus; R74.01 Elevation of levels of liver transaminase levels; L21.9 Seborrheic dermatitis, unspecified; R45.1 Restlessness and agitation; R94.6 Abnormal results of thyroid function studies; Z79.899 Other long term (current) drug therapy; Z75.1 Person awaiting admission to adequate facility elsewhere; Z78.1 Physical restraint status; Z74.1 Need for assistance with personal care; Z87.820 Personal history of traumatic brain injury